=== PATIENT | male | born 1960 | race Caucasian/White ===

== ENCOUNTER 2019-06-21 16:52 | Emergency (ER) | payer OTHER | END 2019-06-21 17:20 | disposition home or self-care (01) | LOC: BURERS 16:52 | DX: S01.411A Laceration without foreign body of right cheek and temporomandibular area, initial encounter (principal); S00.10XA Contusion of unspecified eyelid and periocular area, initial encounter; I10 Essential (primary) hypertension; F17.210 Nicotine dependence, cigarettes, uncomplicated; Z86.73 Personal history of transient ischemic attack (TIA), and cerebral infarction without residual deficits; W18.30XA Fall on same level, unspecified, initial encounter; Y92.009 Unspecified place in unspecified non-institutional (private) residence as the place of occurrence of the external cause | CPT/HCPCS: 12011 ==

== ENCOUNTER 2020-07-22 12:12 | Emergency (ER) | payer OTHER | END 2020-07-22 13:52 | disposition home or self-care (01) | LOC: BURERS 12:12 | DX: I10 Essential (primary) hypertension (principal); F17.210 Nicotine dependence, cigarettes, uncomplicated; Z79.899 Other long term (current) drug therapy; Z86.73 Personal history of transient ischemic attack (TIA), and cerebral infarction without residual deficits | CPT/HCPCS: 93005 ==

== ENCOUNTER 2020-10-05 05:05 | Emergency (ER) | payer OTHER ==
[2020-10-05] MEDS ORDERED: Morphine 4 MG/ML VIAL ONE (06:13)
[2020-10-05] MEDS ORDERED: Morphine 2 MG/ML VIAL ONE (06:13)
[2020-10-05] MEDS ORDERED: Ondansetron ODT 4 MG TAB ONE (06:14)
[2020-10-05] MEDS ORDERED: Acetaminophen/Codeine 30-300mg Tablet ONE (07:45)
--- NOTE | 2020-10-06 06:23 | RAD ---
RIGHT SHOULDER 3 VIEWS: DATE: 10/05/2020. FINDINGS: Multiple views show a comminuted fracture of the upper humeral shaft near the surgical neck. There i s slight angulation at the fracture site, but the humeral head itself is not dislocated. The AC join t is not widened. As best as I can tell, the adjacent left ribs are intact. There may have been an old fracture of the right 5th rib. IMPRESSION: Comminuted fracture of the upper humeral shaft with angulation. The fracture site partially involves the neck, but mainly involves the upper shaft itself. POS: HOME
== END 2020-10-05 09:42 | disposition home or self-care (01) ==
LOC: BURERS 05:05
DX: S42.201A Unspecified fracture of upper end of right humerus, initial encounter for closed fracture (principal); I11.0 Hypertensive heart disease with heart failure; I50.9 Heart failure, unspecified; Z86.73 Personal history of transient ischemic attack (TIA), and cerebral infarction without residual deficits; Z87.891 Personal history of nicotine dependence; Z79.899 Other long term (current) drug therapy; W01.0XXA Fall on same level from slipping, tripping and stumbling without subsequent striking against object, initial encounter
CPT/HCPCS: 96372; J2270; Q0162

== ENCOUNTER 2020-10-09 11:23 | Emergency (ER) | payer OTHER ==
[2020-10-09] MEDS ORDERED: Ondansetron ODT 4 MG TAB ONE (11:36)
[2020-10-09] MEDS ORDERED: Morphine 4 MG/ML VIAL ONE (11:36)
--- NOTE | 2020-10-09 13:27 | RAD ---
PORTABLE CHEST: DATE: 10/09/2020. FINDINGS: An AP portable film at 1147 is compared with a 07/24/2020 study. There has been no adverse interval change. The heart is normal in size and the lungs are clear. No acute infiltrate or effusion was seen. There is no pneumothorax. Old healed rib fractures are seen on the left. At the periphery of the film, one sees a comminuted humeral neck fracture on the right which as taylor garcia described on a 10/05 film of shoulder. IMPRESSION: No acute thoracic findings. POS: HOME
--- NOTE | 2020-10-09 14:11 | RAD ---
RIGHT SHOULDER TWO VIEWS: Date: 10-09-2020 Comparison: 10-05-2020 FINDINGS: A hanging splint has been applied in the interval. The fracture of the upper humeral shaft and right humeral neck are again noted. There is some slight angulation at the fracture today, more so than bef ore. There is some slight off-set of the fracture fragments. The adjacent lung is clear. IMPRESSION: Slight changes in position of the proximal humeral fracture since 10-05-2020. POS: HOME
== END 2020-10-09 12:46 | disposition home or self-care (01) ==
LOC: BURERS 11:23
DX: S42.201D Unspecified fracture of upper end of right humerus, subsequent encounter for fracture with routine healing (principal); Z79.899 Other long term (current) drug therapy; I50.9 Heart failure, unspecified; I11.0 Hypertensive heart disease with heart failure; F17.210 Nicotine dependence, cigarettes, uncomplicated
CPT/HCPCS: 71045; 96372; J2270; Q0162

== ENCOUNTER 2021-04-15 09:20 | Emergency (ER) | payer OTHER ==
[2021-04-15 09:54] LABS: Bilirubin Negative (Negative); Blood, Urine Negative (Negative); Clarity Clear (Clear); Glucose, Urine (Dipstick) Negative (Negative); Ketone, Urine Negative (Negative); Leukocyte Negative (Negative); Nitrite Negative (Negative); Protein, Urine (Dipstick) Negative (Neg-Trace); Specific Gravity, Urine 1.015 (1.005-1.030); Urobilinogen 0.2 mg/dL (Less than 2); pH, Urine 7.5 (5.0-9.0)
== END 2021-04-15 10:07 | disposition home or self-care (01) ==
LOC: BURERS 09:20
DX: R33.9 Retention of urine, unspecified (principal); I11.0 Hypertensive heart disease with heart failure; I50.9 Heart failure, unspecified; F17.210 Nicotine dependence, cigarettes, uncomplicated
CPT/HCPCS: 81003; 99283

== ENCOUNTER 2021-11-18 07:51 | Emergency (ER) | payer OTHER ==
[2021-11-18 08:32] LABS: Bilirubin Negative (Negative); Blood, Urine Negative (Negative); Clarity Clear (Clear); Glucose, Urine (Dipstick) Negative (Negative); Ketone, Urine Negative (Negative); Leukocyte Negative (Negative); Nitrite Negative (Negative); Protein, Urine (Dipstick) Negative (Neg-Trace); Urobilinogen 0.2 mg/dL (Less than 2)
== END 2021-11-18 08:46 | disposition home or self-care (01) ==
LOC: BURERS 07:51
DX: R33.9 Retention of urine, unspecified (principal); I11.0 Hypertensive heart disease with heart failure; I50.9 Heart failure, unspecified; F17.210 Nicotine dependence, cigarettes, uncomplicated; Z86.73 Personal history of transient ischemic attack (TIA), and cerebral infarction without residual deficits; Z79.899 Other long term (current) drug therapy
CPT/HCPCS: 81003; 99406

== ENCOUNTER 2022-01-26 11:15 | Outpatient (CLI) | payer OTHER | END 2022-01-26 11:16 | disposition home or self-care (01) | LOC: BURRAD 11:15 | PROVIDERS: ATTEND Registered Nurse Community Health | DX: R59.0 Localized enlarged lymph nodes (principal); K59.00 Constipation, unspecified | CPT/HCPCS: 74019 ==

== ENCOUNTER 2022-02-17 13:38 | Emergency (ER) | payer OTHER | END 2022-02-17 14:10 | disposition home or self-care (01) | LOC: BURERS 13:38 | DX: I11.0 Hypertensive heart disease with heart failure (principal); I50.9 Heart failure, unspecified; F17.210 Nicotine dependence, cigarettes, uncomplicated; Z79.899 Other long term (current) drug therapy; Z86.73 Personal history of transient ischemic attack (TIA), and cerebral infarction without residual deficits | CPT/HCPCS: 99283 ==

== ENCOUNTER 2022-02-22 09:46 | Emergency (ER) | payer OTHER ==
[2022-02-22] MEDS ORDERED: Iopamidol 370 76% 100 ML VIAL FS ONE (09:47)
[2022-02-22 10:44] LABS: Anion Gap 16 mmol/L (10-20); BUN (Urea Nitrogen) 36 mg/dL (8.4-25.7); Calc. Creatinine Clearance 0 mL/min (70-130); Calcium 8.7 mg/dL (7.8-10.44); Carbon Dioxide 26 mmol/L (22-29); Chloride 86 mmol/L (98-107); Estimated GFR 44; Glucose 95 mg/dL (70-105); Potassium 4.7 mmol/L (3.5-5.1); Sodium 123 mmol/L (136-145)
[2022-02-22 10:45] LABS: #Basophils 0.1 thou/uL (0.0-0.2); #Eosinphils 0.1 thou/uL (0.0-0.7); #Lymphocytes 1.8 thou/uL (1.20-3.40); #Monocytes 0.6 thou/uL (0.11-0.59); #Neutrophils 5.9 thou/uL (1.40-6.50); %Basophils 1.2 % (0.0-1.0); %Eosinophils 1.3 % (0.0-10.0); %Lymphocytes 21.4 % (21.0-51.0); %Monocytes 6.6 % (0.0-10.0); %Neutrophils 69.5 % (42.0-75.0); Hemoglobin 14.8 g/dL (14.0-18.0); Mean Corpuscular HGB CONC 35.7 g/dL (32.0-36.0); Mean Corpuscular Hemoglobin 32.9 pg (27.0-31.0); Mean Corpuscular Volume 92.2 fL (78.0-98.0); Mean Platelet Volume 5.5 fL (7.4-10.4); Platelet Count 252 thou/uL (130-400); RBC Distribution Width 12.5 % (11.5-14.5); White Blood Cell (WBC) Count 8.4 thou/uL (4.8-10.8)
== END 2022-02-22 12:31 | disposition home or self-care (01) ==
LOC: BURERS 09:46
DX: I72.4 Aneurysm of artery of lower extremity (principal); E87.1 Hypo-osmolality and hyponatremia; I10 Essential (primary) hypertension; I50.9 Heart failure, unspecified; F17.210 Nicotine dependence, cigarettes, uncomplicated; Z86.73 Personal history of transient ischemic attack (TIA), and cerebral infarction without residual deficits
CPT/HCPCS: 36415; 72193; 80048; 85025; 96360; Q9967

== ENCOUNTER 2023-05-04 08:19 | Emergency (ER) | payer OTHER | END 2023-05-04 08:58 | disposition home or self-care (01) | LOC: BURERS 08:19 | DX: K59.00 Constipation, unspecified (principal); I11.0 Hypertensive heart disease with heart failure; I50.9 Heart failure, unspecified; F17.290 Nicotine dependence, other tobacco product, uncomplicated; Z86.73 Personal history of transient ischemic attack (TIA), and cerebral infarction without residual deficits | CPT/HCPCS: 99283 ==

== ENCOUNTER 2024-01-25 11:52 | Emergency (ER) | payer OTHER | END 2024-01-25 12:24 | disposition home or self-care (01) | LOC: BURERS 11:52 | DX: K59.00 Constipation, unspecified (principal); I11.0 Hypertensive heart disease with heart failure; I50.9 Heart failure, unspecified; F17.210 Nicotine dependence, cigarettes, uncomplicated | CPT/HCPCS: 99283 ==